=== PATIENT | female | born 2000 | race Caucasian/White ===

== ENCOUNTER 2025-05-12 23:07 | Emergency (ER) | payer OTHER ==
[~2025-05-12] VITALS: Ht 154.9 cm; Wt 65.0 kg
[2025-05-12 23:31] VITALS: O2SAT 99
[2025-05-13] MEDS: ACETAMINOPHEN 650MG/20.3ML UDC PO ONE (01:12)
[2025-05-13] MEDS: DEXAMETHASONE 10 MG/ML VIAL PO ONE (01:13)
[2025-05-13] MEDS ORDERED: AMOX1TAB16 MT (02:01)
[2025-05-13 02:12] VITALS: BP 96/63; PULSE 83; RESP 18; TEMP 37; O2SAT 100
== END 2025-05-13 02:14 | disposition home or self-care (01) ==
LOC: ER 23:07
DX: J02.9 Acute pharyngitis, unspecified (principal); Z79.52 Long term (current) use of systemic steroids; Z98.890 Other specified postprocedural states
CPT/HCPCS: 99283; 87430; 87070; J1100